=== PATIENT | male | born 1970 | race Two or more races ===

== ENCOUNTER → 2016-06-15 | Outpatient (REF) | payer OTHER | LOC: M LAB REF 12:06 | PROVIDERS: ATTEND Internal Medicine | DX: M10.9 Gout, unspecified (principal) ==

== ENCOUNTER → 2017-10-26 | Outpatient (REF) | payer OTHER ==
[2017-10-26 21:40] LABS: URIC ACID 6.3 MG/DL (3.5-7.2)
== END ==
LOC: M LAB REF 17:22
DX: M10.9 Gout, unspecified (principal)

== ENCOUNTER → 2018-09-07 | Outpatient (CLI) | payer OTHER ==
--- NOTE | 2018-09-11 19:51 | SLEEPHOME ---
DATE OF PROCEDURE: 09/07/2018 ORDERED BY: Abi Ramirez Diagnostic home sleep testing was performed due to concern for the obstructive sleep apnea syndrome. For testing a nocturnal T3 respiratory monitoring device was used. Continuous record was made of pulse, oxygen saturation airflow, chest, abdominal strain and body position. 9 hours and 58 minutes of data were reviewed. There were 8 hours and 19 minutes marked as time in bed. During the interval marked time in bed there were 50 respiratory events identified of 10 seconds in duration or greater for respiratory event index of 6 events were primarily obstructive and seen more common in the supine posture. Baseline pulse rate 72 beats per minute, pulse rate ranged 52-110. Baseline saturation 94%. Saturations fell to 86%. Testing was performed in both the supine and nonsupine positions. IMPRESSION: Abnormal home sleep testing with repetitive respiratory events and oxygen desaturations to 86% with a respiratory event index of 6 is consistent with the obstructive sleep apnea syndrome. RECOMMENDATIONS: Sleep position retraining for avoidance of the supine posture may be sufficient to address the patient's complaint should symptoms persist, referral back to sleep disorder center for pressure titration should be considered.
== END ==
LOC: M SLEEP HO 12:01
PROVIDERS: ATTEND Nurse Practitioner Family
DX: R40.0 Somnolence (principal)

== ENCOUNTER → 2018-10-31 | Outpatient (REF) | payer OTHER | LOC: M LAB REF 16:53 | PROVIDERS: ATTEND Internal Medicine | DX: M10.9 Gout, unspecified (principal) ==

== ENCOUNTER → 2018-12-26 | Outpatient (CLI) | payer OTHER ==
[~2018-12-26] MED LIST: PROHANCE 279.3MG/ML 15ML VIAL (A9576) As Ordered ONE; PROHANCE 279.3MG/ML 5ML VIAL (A9576) As Ordered ONE
--- NOTE | 2018-12-26 16:13 | REPVR ---
PROCEDURE INFORMATION: Exam: MR Head Without and With Contrast Exam date and time: 12/26/2018 3:01 PM Clinical history: 48 years old, male; Other: Hearloss; Patient HX: Lt sided hearing lose, tinnitis; Additional info: Hearing loss TECHNIQUE: Imaging protocol: MR of the head without and with intravenous contrast. 3D rendering: MIP reconstructed images were created and reviewed. Contrast material: PROHANCE; Contrast volume: 20 ml; Contrast route: IV; COMPARISON: No relevant prior studies available. FINDINGS: Brain: There is no evidence of infarct, manzo-white matter differentiation is preserved. There is no hemorrhage or extra-axial collection. There is no mass. DWI images demonstrate no evidence of acute infarct. There is no evidence of demyelinating disease. There are no abnormal flow voids. Ventricles: There is no hydrocephalus. Bones/joints: Unremarkable. Soft tissues: Unremarkable. Sinuses: Normal as visualized. No acute sinusitis. Mastoid air cells: Normal as visualized. No mastoid effusion. Internal auditory canals: Additional images of the internal auditory canals demonstrates no evidence of a mass in the cerebellopontine angles or internal auditory canals. There is no focal thickening or abnormal enhancement of the eighth nerves. There is no abnormality of the cochlea. Orbits: Unremarkable. IMPRESSION: 1. No intracranial lesion or injury. 2. No abnormality of the internal auditory canals. Electronically signed by: Brandin Jones On 12/26/2018 16:13:31 PM
== END ==
LOC: M RAD 14:57
PROVIDERS: ATTEND Otolaryngology
DX: H90.3 Sensorineural hearing loss, bilateral (principal)
CPT/HCPCS: 70553; A9576

== ENCOUNTER → 2021-05-10 | Outpatient (REF) | payer OTHER | LOC: M LAB REF 11:05 | PROVIDERS: ATTEND Internal Medicine | DX: M10.9 Gout, unspecified (principal) ==

== ENCOUNTER → 2022-04-15 | Outpatient (REF) | payer OTHER | LOC: M LAB REF 12:12 | PROVIDERS: ATTEND Internal Medicine | DX: M10.9 Gout, unspecified (principal) ==

== ENCOUNTER → 2022-05-02 | Outpatient (CLI) | payer OTHER | LOC: M RAD 13:37 | PROVIDERS: ATTEND Internal Medicine | DX: M79.662 Pain in left lower leg (principal); M16.12 Unilateral primary osteoarthritis, left hip; Q76.0 Spina bifida occulta; M53.3 Sacrococcygeal disorders, not elsewhere classified ==

== ENCOUNTER → 2022-09-09 | Outpatient (REF) | payer OTHER | LOC: M LAB REF 12:19 | PROVIDERS: ATTEND Internal Medicine | DX: M10.9 Gout, unspecified (principal) ==

== ENCOUNTER → 2022-09-15 | Outpatient (CLI) | payer OTHER | LOC: M SLEEP HO 10:59 | PROVIDERS: ATTEND Nurse Practitioner Family | DX: G47.33 Obstructive sleep apnea (adult) (pediatric) (principal) ==

== ENCOUNTER → 2022-12-19 | Outpatient (REF) | payer OTHER | LOC: M LAB REF 16:37 | PROVIDERS: ATTEND Internal Medicine | DX: M10.9 Gout, unspecified (principal) ==

== ENCOUNTER → 2022-12-20 | Outpatient (REF) | payer OTHER | LOC: M SFHCDERM 17:33 | PROVIDERS: ATTEND Nurse Practitioner Family | DX: B07.9 Viral wart, unspecified (principal) ==

== ENCOUNTER → 2023-04-28 | Outpatient (REF) | payer OTHER | LOC: M LAB REF 12:34 | PROVIDERS: ATTEND Internal Medicine | DX: M10.9 Gout, unspecified (principal) ==

== ENCOUNTER → 2024-07-02 | Outpatient (REF) | payer OTHER | LOC: M LAB REF 12:20 | PROVIDERS: ATTEND Internal Medicine | DX: M10.9 Gout, unspecified (principal) ==